=== PATIENT | female | born 1975 | race Caucasian/White ===

== ENCOUNTER 2024-05-10 16:00 | Outpatient (REF) | payer OTHER, SELFPAY ==
[2024-05-16 15:09] LABS: Age Gdln ACOG Testing Note (.); HPV Aptima Negative (Negative); IGP, Aptima HPV, rfx 16/18,45 Note (.)
== END 2024-05-10 16:01 | disposition home or self-care (01) ==
LOC: LAB 16:00
PROVIDERS: PCP Family Medicine; Visit Provider Nurse Practitioner Family
DX: Z01.419 Encounter for gynecological examination (general) (routine) without abnormal findings (principal)
CPT/HCPCS: 87624; 88175

== ENCOUNTER 2024-05-16 12:45 | Outpatient (OUT) | payer OTHER, SELFPAY ==
--- NOTE | 2024-05-16 | US_ITS ---
The [address] [address] Patient Name: STU FERNANDEZ MRN: [id number] date: 1975 Sex: F Assigned Patient Location: Current Patient Location: Accession/Order Number: [id number] Exam Date: 05/16/2024 12:50 Report Date: 05/18/2024 07:13 At the request of: ZOILA HOSKINS Procedure: US pelvis w/ transvaginal EXAM: US pelvis w/ transvaginal HISTORY: . Irregular menstrual bleeding . COMPARISON: None. TECHNIQUE: Grayscale and color imaging was performed FINDINGS: Scanning of the pelvis demonstrates a retroverted uterus measuring 6.2 x 4.1 x 5 cm. Endometrial complex measures 4 mm. Left ovary was not visualized. Right ovary measures 2.1 x 1.7 x 1.6 cm. Color-flow is noted. No masses are noted. No fluid is noted in the cul-de-sac. US/US pelvis w/ transvaginal IMPRESSION: 1. Normal-appearing retroverted uterus and a normal endometrial complex. 2. Normal right ovary. 3. Left ovary was not identified. Electronically authenticated by: RANDELL LARA Date: 05/18/2024 07:13
== END 2024-05-16 12:46 | disposition home or self-care (01) ==
LOC: US 12:45
PROVIDERS: PCP Family Medicine; Visit Provider Family Medicine
DX: N92.6 Irregular menstruation, unspecified (principal)
CPT/HCPCS: 76830; 76856

== ENCOUNTER 2024-08-09 15:17 | Outpatient (OUT) | payer OTHER, SELFPAY ==
--- NOTE | 2024-08-09 15:20 | MM_ITS ---
Patient Name: STU FERNANDEZ MR#: [id number] : 1975 Exam Date: 08/09/2024 Ordering Doctor: DR Gerardo Gaviria . RADIOLOGY REPORT PROCEDURE: MM TOMOSYNTHESIS SCREENING BI COMPARISON: MG MAMM SCREEN ADELINA W CAD, 07/01/2021. MG MAMM SCREEN ADELINA W CAD, 04/07/2023. INDICATIONS: Other screening mammogram Z12.31 Calculator Name NCI Breast Cancer Risk Assessment Tool 5 Year Breast Cancer Risk Not Reported. Lifetime Breast Cancer Risk Not Reported. Personal Breast Cancer No Personal Ovarian Cancer No Treatments None Family Cancers None LOCATION: [facility] BREAST COMPOSITION: There are scattered areas of fibroglandular density. FINDINGS: DIAGNOSTIC CATEGORY 2--BENIGN FINDING. NO CHANGE FROM COMPARISON. Scattered benign-appearing calcifications are present. Scattered benign-appearing lymph nodes are present. RIGHT BREAST: No significant suspicious finding. LEFT BREAST: No significant suspicious finding. Asymmetrically small, stable RECOMMENDATIONS: ROUTINE MAMMOGRAM AND CLINICAL EVALUATION IN 12 MONTHS. PLEASE NOTE: A NORMAL MAMMOGRAM DOES NOT EXCLUDE THE POSSIBILITY OF BREAST CANCER. A CLINICALLY SUSPICIOUS PALPABLE LUMP SHOULD BE BIOPSIED. Dictated by: Trent Linder MD on 08/14/2024 at 12:44 Approved by: Trent Linder MD on 08/14/2024 at 12:49
--- OUTSIDE RECORDS SUMMARY | 2024-08-09 15:36 | XMS_ITS | CCD ---
Author Organization [facility] Care Team Providers Care Oil Producer Name Role Phone GATO, DR CUMMINGS Consulting Unavailable SHONAY, DR CUMMINGS Attending Unavailable SHONAY, DR CUMMINGS Admitting Unavailable SHONAY, DR CUMMINGS Primary Care Unavailable SHONAY, DR CUMMINGS Consulting Unavailable SHONAY, DR CUMMINGS Attending Unavailable HOY, DR CUMMINGS Admitting Unavailable GATO, DR CUMMINGS Primary Care Unavailable IMCHAEL LOVELL Admitting Unavailable MICHAEL LOVELL Consulting Unavailable MICHAEL LOVELL Attending Unavailable GATO, DR CUMIMNGS Primary Care Unavailable KD HERR Attending Unavailable Problems Active Problems Problem Classification Problem Date Documented Da te Episodic/Chronic Unclassified (3 sources) CONTACT W/AND (SUSP) EXPOS COVID-19; Translations: [CONTACT W/AND (SUSP) EXPOS COVID-19] Onset: 07-07-2021 Viral infection (1 source) COVID-19; Translations: [COVID-19] Onset: 06-11-2022 Past or Other Problems Problem Classification Problem Date Documented Da te Episodic/Chronic Immunizations and screening for infectious disease (4 sources) Encounter for immunization; Translations: [ENCOUNTER FOR IMMUNIZATION] Onset: 11-03-2021 Episodic Unclassified (1 source) CONTACT W/AND (SUSP) EXPOS COVID-19; Translations: [CONTACT W/AND (SUSP) EXPOS COVID-19] Onset: 06-08-2022 Results Test Name Value Interpretation Reference Range Facil ity Covid-19 PCR ([facility])on 05-15 SARS-CoV-2 (COVID-19) RNA JERMAN+probe Ql (Unsp spec) Detected Critically abnormal NOT DETECTED [facility] Comment on above: Result Comment: This test is not yet approved or cleared by the [place] FDA. When there are no FDA-approved or cleared tests available, and other criteria are met, FDA can make tests available under an emergency access mechanism called an Emergency Use Authorization (EUA). The EUA for this test is supported by the [employer] Supervisor of Health and Human Service's declaration that circumstances exist to justify the emergency use of in vitro diagnostics for the detection and/or diagnosis of the virus that causes COVID-19. This EUA will remain in effect for the duration of the COVID-19 declaration justifying emergency of IVDs, unless it is terminated or revoked by the FDA (after which the test may no longer be used). Performed By: #### C VDTBH #### [facility] [address] [address] [address] Neftaly Cortez Covid-19 PCR ([facility])on 06-14 SARS-CoV-2 (COVID-19) RNA JERMAN+probe Ql (Unsp spec) Not detected Normal NOT DETECTED [facility] Comment on above: Result Comment: This test is not yet approved or cleared by the [place] FDA. When there are no FDA-approved or cleared tests available, and other criteria are met, FDA can make tests available under an emergency access mechanism called an Emergency Use Authorization (EUA). The EUA for this test is supported by the [place] of Health and Human Service's (HHS's) declaration that circumstances exist to justify the emergency use of in vitro diagnostics for the detection and/or diagnosis of the virus that causes COVID-19. This EUA will remain in effect (meaning this test can be used) for the duration of the COVID-19 declaration justifying emergency of IVDs, unless it is terminated or revoked by FDA (after which the test may no longer be used). When diagnostic testing is negative, the possibility of a false negative should be considered in the context of a patient's recent exposures and the presence of clinical signs and symptoms consistent with SARS-CoV-2. Performed By: #### C VDAGS, CVDTB #### [facility] [address] [place], [place] [address] Ana Polanco SYMPTOMATIC COVID-19 ANTIGEN on 06-26-2021 EUA Statement SEE BELOW Normal [facility] Comment on above: Result Comment: This test has not been FDA cleared or approved, but has been authorized by the FDA under an Emergency Use Authorization (EUA) for use by authorized laboratories certified under CLIA that meet the requirements to perform moderate or high complexity testing. This test has been authorized only for the detection of proteins from SARS-CoV-2, not for any other viruses or pathogens. The emergency use of this test is authorized for the duration of the declaration that circumstances exist justifying the authorization of emergency use of in vitro diagnostic tests for detection and/or diagnosis of Covid-19 under section 564(b)(1) of the Act, 21 U.S.C. 360bbb-3(b)(1), unless the declaration is terminated or authorization is revoked sooner. Performed By: #### C MELISSA, CVDTB #### [facility] [address] [place], [place] [address] Ana Sherri SARS-CoV-2 (COVID-19) RNA JERMAN+probe Ql (Unsp spec) Negative Normal NEGATIVE [facility] Comment on above: Result Comment: CONF IRMATION BY PCR PENDING PER CDC GUIDELINES/ SYMPTOMATIC PATIENT. Performed By: #### C JEFFYAGS, CVDTB #### [facility] [address] [place], [place] [address] Ana Polanco Encounters Encounter Date Encounter Type Care Provider Facility Start: 07-25-2024 End: 07-25-2024 ambulatory KD HERR Not Available Start: 06-08-2022 End: 06-08-[address] ZOILA HOSKINS Facility:[facility] Start: 11-03-2021 End: 11-04-2021 ambulatory MICHAEL LOVELL Facility:[facility] Start: 06-26-2021 End: 06-27-[address] ZOILA HOSKINS Facility:[facility] Payers Date Payer Category Payer Unknown [id number] 1975 Unknown [id number] 1975 Unknown [id number] 1957 Private Health Insurance [id number] 1957 Self-pay [id number] 1957 Unknown [id number] Unknown [id number] Summary Purpose Family History No Family History Records FoundNo Family History Records Found Advance Directives No Advanced Directives Records FoundNo Advanced Directives Records Found Additional Source Comments INFORMATION SOURCE (unrecogn ized section and content) DATE CREATED AUTHOR 06/15/2022 [facility] DATE CREATED AUTHOR 'Elle TORREZ 07/27/2024 [facility] EPIC FOR RECORDS PERTAINING TO PATIENTS WHO ARE OR HAVE BEEN ENROLLED IN A CHEMICAL DEPENDENCY/SUBSTANCEABUSE PROGRAM, SOME INFORMATION MAY BE OMITTED. This clinical summary was aggregated from multiple sources. Caution should be exercised in using it in the provision of clinical care. This summary normalizes information from multiple sources, and as a consequence, information in this document may materially change the coding, format and clinical context of patient data. In addition, data may be omitted in some cases. CLINICAL DECISIONS SHOULD BE BASED ON THE PRIMARY CLINICAL RECORDS. [facility] [email or web address] [facility]. provides no warranty or guarantee of the accuracy or completeness of information in this document.
== END 2024-08-09 15:18 | disposition home or self-care (01) ==
LOC: MAMMO 15:17
PROVIDERS: PCP Family Medicine; Visit Provider Obstetrics & Gynecology
DX: Z12.31 Encounter for screening mammogram for malignant neoplasm of breast (principal)
CPT/HCPCS: 77063; 77067